=== PATIENT | male | born 1950 | race Caucasian/White ===

== ENCOUNTER 2020-05-03 11:37 | Inpatient (IN) | payer OTHER, MEDICARE ==
[~2020-05-03] VITALS: Ht 175.3 cm; Wt 95.2 kg
[2020-05-03 12:59] LABS: BASOPHILS ABSOLUTE AUTO 0.04 K/mm3 (0.00-0.23); BASOPHILS PERCENT AUTO 1 % (0-2); EOSINOPHILS PERCENT AUTO 3 % (0-6); Hemoglobin 11.6 g/dL (13.5-17.5); IMMATURE GRAN ABSOLUTE AUTO 0.04 K/mm3 (0.00-0.10); IMMATURE GRAN PERCENT AUTO 1 % (0-1); LYMPHOCYTES ABSOLUTE AUTO 0.59 K/mm3 (0.84-5.20); LYMPHOCYTES PERCENT AUTO 8 % (21-46); MONOCYTES ABSOLUTE AUTO 0.71 K/mm3 (0.16-1.47); MONOCYTES PERCENT AUTO 9 % (4-13); Mean Corpuscular HGB 30.5 pg (26.0-34.0); Mean Corpuscular HGB Conc 33.1 g/dL (31.5-36.5); Mean Corpuscular Volume 92 fL (80-100); Mean Platelet Volume 9.3 fL (9.1-12.4); NEUTROPHILS ABSOLUTE AUTO 6.18 K/mm3 (1.96-9.15); NEUTROPHILS PERCENT AUTO 80 % (41-73); Platelet Count 254 K/mm3 (150-400); RDW Coefficient Variation 13.2 % (11.7-14.2); RDW Standard Deviation 44.2 fL (35.1-46.3); White Blood Cell Count 7.76 K/mm3 (4.00-11.30)
[2020-05-03 13:11] LABS: Alanine Aminotransfer (ALT/SGP 25 U/L (12-78); Albumin, Blood 2.9 g/dL (3.4-5.0); Albumin/Globulin Ratio 0.7 (0.8-1.8); Alk Phos 74 U/L (50-136); Anion Gap 8 mmol/L (6-16); Aspartate Aminotrans (AST/SGOT 18 U/L (12-37); Bilirubin, Total 0.8 mg/dL (0.1-1.0); Blood Urea Nitrogen 16 mg/dL (8-24); CO2, Blood 26 mmol/L (21-32); Chloride, Blood 101 mmol/L (98-108); Creatinine, Blood 1.07 mg/dL (0.60-1.20); Globulin, Blood 4.2 g/dL (2.2-4.0); Glomerular Filtration Rate >60 (60-); Glucose, Blood 128 mg/dL (70-99); Potassium, Blood 4.1 mmol/L (3.5-5.5); Sodium, Blood 135 mmol/L (136-145); Total Protein, Blood 7.1 g/dL (6.4-8.2); Troponin I 0.023 ng/mL (0.000-0.040)
[2020-05-03] MEDS ORDERED: Naltrexone HCl50 MG PO (13:12)
[2020-05-03] MEDS ORDERED: Chantix1 MG (13:12)
[2020-05-03] MEDS ORDERED: ALBU90OI INH (15:13)
[2020-05-03] MEDS ORDERED: Aspir 8181 MG PO (15:14)
[2020-05-03] MEDS ORDERED: AMLO10 PO (15:14)
[2020-05-03] MEDS ORDERED: ATORVASTATIN CA40 MG PO (15:15)
[2020-05-03] MEDS ORDERED: EZET10 PO (15:15)
[2020-05-03] MEDS ORDERED: BUDESONIDE-FO10.2 G2 INH (15:15)
[2020-05-03 15:16] LABS: PCO2 Arterial 38.3 mmHg (35-45); PO2 Arterial 42.8 mmHg (80-100)
[2020-05-03] MEDS ORDERED: GABA300 PO (15:16)
[2020-05-03] MEDS ORDERED: LOSARTAN POTAS100 M1 PO (15:16)
[2020-05-03] MEDS ORDERED: MAGNESIUM OXID500 MG PO (15:17)
[2020-05-03] MEDS ORDERED: OMEP20ER PO (15:17)
[2020-05-03] MEDS ORDERED: PRAM.5 PO (15:17)
[2020-05-03] MEDS ORDERED: SILD50TA PO (15:18)
[2020-05-03] MEDS ORDERED: VENL150ER PO (15:18)
[2020-05-03] MEDS ORDERED: CALCIUM 600 +1 EA11 PO (15:19)
[2020-05-03] MEDS ORDERED: MULTI-VITAMIN1 EAC2 PO (15:20)
[2020-05-03] MEDS ORDERED: Vitamin B Comple1 EA PO (15:21)
[2020-05-03] MEDS ORDERED: ASCO500 PO (15:21)
--- NOTE | 2020-05-03 16:45 | NUR ---
PT ARRIVED TO ROOM 334 FROM ED BY W/C. INDEPENDENT TO BED AND SETTLED IN. DENIED ANY SOB ON ARRIVAL TO ROOM. ORIENTED TO CALL BUTTON, ROOM, AND BED.
[2020-05-03 17:07] LABS: Adenovirus Not Detected (NOT DETECT); Bordetella pertussis Not Detected (NOT DETECT); Chlamydophila pneumoniae Not Detected (NOT DETECT); Coronavirus 229E Not Detected (NOT DETECT); Coronavirus HKU1 Not Detected (NOT DETECT); Coronavirus NL63 Not Detected (NOT DETECT); Coronavirus OC43 Not Detected (NOT DETECT); Human Metapneumovirus Not Detected (NOT DETECT); Human Rhinovirus/Enterovirus Not Detected (NOT DETECT); Influenza A/2009-H1 Not Detected (NOT DETECT); Influenza A/H1 Not Detected (NOT DETECT); Influenza A/H3 Not Detected (NOT DETECT); Influenza B Not Detected (NOT DETECT); Mycoplasma pneumoniae Not Detected (NOT DETECT); Parainfluenza Virus 1 Not Detected (NOT DETECT); Parainfluenza Virus 2 Not Detected (NOT DETECT); Parainfluenza Virus 3 Not Detected (NOT DETECT); Parainfluenza Virus 4 Not Detected (NOT DETECT); Respiratory Syncytial Virus Not Detected (NOT DETECT); SARS-Cov-2 (COVID-19), BioFire Not Detected (NOT DETECT)
--- NOTE | 2020-05-03 18:51 | NUR ---
SHIFT SUMMARY PTS AT BEDSIDE THIS EVENING. CONTINUOUS PULSE OX READING 80'S THROUGH SUPPER WITH NO RESP DISTRESS OR CYANOSIS NOTED, O2 INCREASED WITH MINIMAL CHANGE. AFTER SUPPER WITH O2 AT 5L/M SATS REMAINED IN THE 80'S-O2 INCREASED AGAIN TO 8L/M AND RT CALLED. PT TAKING DEEP BREATHS AND REPORTS ONLY MINIMAL SOB. DOES SAY HE BREATHES SHALLOWLY BUT SATS CONTINUED TO BE POORLY MAINTAINED. RT WAS CALLED AND THEY ARRIVED AND GAVE PT ANOTHER NEBULIZER AND DISCUSSED WITH PT TAKING MORE DEEP BREATHS. WILL REPORT CONDITION TO ONCOMING SHIFT.
--- NOTE | 2020-05-04 04:38 | NUR ---
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 PT HAS DENIED ANY SOB EVEN W EXERTION TO THE BATHROOM. THE PT HAS NOT BEEN ABLE TO SLEEP DUE TO THE BI-OX ALARM THROUGHOUT THE NIGHT AND APPEARS IRRITABLE THIS AM. PT IS WATCHING TV W CALL LIGHT WITHIN REACH.WCTM.
[2020-05-04 05:47] LABS: Hematocrit 32.1 % (37.0-53.0); Hemoglobin 10.5 g/dL (13.5-17.5); Mean Corpuscular HGB 29.7 pg (26.0-34.0); Mean Corpuscular HGB Conc 32.7 g/dL (31.5-36.5); Mean Corpuscular Volume 91 fL (80-100); Mean Platelet Volume 8.9 fL (9.1-12.4); Platelet Count 283 K/mm3 (150-400); RDW Coefficient Variation 13.1 % (11.7-14.2); RDW Standard Deviation 43.3 fL (35.1-46.3); Red Blood Cell Count 3.53 M/mm3 (4.30-5.90); White Blood Cell Count 9.25 K/mm3 (4.00-11.30)
[2020-05-04 06:00] LABS: Anion Gap 8 mmol/L (6-16); Blood Urea Nitrogen 26 mg/dL (8-24); Bun/Creatinine Ratio 23.4 (12.0-20.0); CO2, Blood 25 mmol/L (21-32); Calcium, Blood 9.1 mg/dL (8.5-10.1); Chloride, Blood 102 mmol/L (98-108); Creatinine, Blood 1.11 mg/dL (0.60-1.20); Glomerular Filtration Rate >60 (60-); Glucose, Blood 228 mg/dL (70-99); Potassium, Blood 3.8 mmol/L (3.5-5.5); Sodium, Blood 135 mmol/L (136-145)
[2020-05-04] MEDS ORDERED: ACET325 PO (14:08)
[2020-05-04] MEDS ORDERED: AZIT250 PO (14:09)
[2020-05-04] MEDS ORDERED: GUAI600T33 PO (14:10)
[2020-05-04] MEDS ORDERED: PRED20 PO (14:11)
[2020-05-04] MEDS ORDERED: ONDA4ODT MM (14:11)
[2020-05-04] MEDS ORDERED: CRANBERRY PO (14:14)
[2020-05-04] MEDS ORDERED: [UNRECOGNIZED DRUG - OTHER] PO (14:14)
[2020-05-04] MEDS ORDERED: FERSU300 PO (14:14)
--- NOTE | 2020-05-04 18:37 | NUR ---
PT DISCHARGED FROM THE UNIT. LEFT AT 1530 VIA WHEELCHAIR. TO DRIVE HOME. [facility]ICATION[facility] PROVIDED OXYGEN FOR PT, AND WILL MEET THEM AT THEIR HOME. IV REMOVED. DISCHARGE INSTRUCTIONS REVIEWED.
== END 2020-05-04 15:34 | disposition home or self-care (01) | DRG 189 ==
LOC: ER 11:37 → MEDS 16:30
PROVIDERS: Emergency Medicine; Nurse Practitioner Acute Care; ADMIT Internal Medicine
DX: J96.01 Acute respiratory failure with hypoxia (principal); J44.1 Chronic obstructive pulmonary disease with (acute) exacerbation; Z20.822 Contact with and (suspected) exposure to COVID-19; M51.37 Other intervertebral disc degeneration, lumbosacral region; I10 Essential (primary) hypertension; G25.81 Restless legs syndrome; G62.9 Polyneuropathy, unspecified; K21.9 Gastro-esophageal reflux disease without esophagitis; F17.210 Nicotine dependence, cigarettes, uncomplicated; Z79.82 Long term (current) use of aspirin
CPT/HCPCS: 0202U; 36415; 36600; 71045; 71260; 72100; 80048; 80053; 82803; 83605; 83880; 84484; 85025; 85027; 87040; 93005; 93010; 94640; 94644; 94761; 94762; 96365-59; 96367-59; 96375-59; 97110; 97162; 99285-25; A9270; J0456; J0696; J1650; J1885; J2405; J2930; J3010; J7050; Q9967

== ENCOUNTER → 2024-02-05 | Outpatient (CLI) | payer OTHER ==
[~2024-02-05] MED LIST: ACET325 PO; ALBU90OI INH; AMLO10 PO; ASCO500 PO; ATORVASTATIN CA40 MG PO; AZIT250 PO; Aspir 8181 MG PO; BUDESONIDE-FO10.2 G2 INH; CALCIUM 600 +1 EA11 PO; CRANBERRY PO; Chantix1 MG; EZET10 PO; FERSU300 PO; GABA300 PO; GUAI600T33 PO; LOSARTAN POTAS100 M1 PO; MAGNESIUM OXID500 MG PO; MULTI-VITAMIN1 EAC2 PO; Naltrexone HCl50 MG PO; OMEP20ER PO; ONDA4ODT MM; PRAM.5 PO; PRED20 PO; SILD50TA PO; VENL150ER PO; Vitamin B Comple1 EA PO; [UNRECOGNIZED DRUG - OTHER] PO
[2024-02-05 20:24] LABS: Microalb/Creat Ratio UR, Rand 98.74 mg/g (0.000-30.000)
== END | disposition home or self-care (01) ==
LOC: LAB SHORT 13:45 → LAB 13:45
PROVIDERS: Nurse Practitioner Family
DX: E11.65 Type 2 diabetes mellitus with hyperglycemia (principal)
CPT/HCPCS: 82043; 82570

== ENCOUNTER → 2024-08-29 | Outpatient (CLI) | payer OTHER | LOC: LAB SHORT 10:10 → LAB 10:10 | DX: R05.1 Acute cough (principal) | CPT/HCPCS: 87070; 87205 ==